=== PATIENT | female | born 1945 | race African-American/Black ===

== ENCOUNTER 2016-06-18 05:57 | Inpatient (IN) ==
[2016-06-18] MEDS: D10W 500 ML IV SCH ×2 (06:30→20:42)
--- NOTE | 2016-06-18 06:41 | EKG Report ---
Test Performed on : 06/18/2016 06:34:50 AM Test Reason : CHEST PAIN Blood Pressure : / mmHG Vent. Rate : 066 BPM Atrial Rate : 066 BPM P-R Int : 160 ms QRS Dur : 100 ms QT Int : 428 ms P-R-T Axes : 002 -35 021 degrees QTc Int : 448 ms Normal sinus rhythm. Left axis deviation Anterolateral infarct (cited on or before 07-AUG-2009) Abnormal ECG When compared with ECG of 22-NOV-2015 06:16, No significant change was found Unconfirmed Result
--- NOTE | 2016-06-18 06:47 | PROVIDER DOCUMENTATION ---
Addendum entered and electronically signed by Michele Hardy Scribe 06/18/16 10 :58: Progress - CT/MRI 1 CT Study: Head Impression: Abnormal CT Results: old infarcts, no acute abnormality Original Note: HPI-General Adult - General Source: patient, family - History of Present Illness -Gen Adult Nature of Presenting Problems: Daughter reports that she could not weak mom up before she went to work and called 911. Pt is on insulin for DMII, but not on any pills for it. Pt has not been eating much lately because of her toothache. FSBS=31 when EMS on the scene and EJ started on R side and IV D10 around 250 MLS given en route. LLEO=642n on ED arrival and pt woke up. Denies CP and no other concerns. H/o DMII/CHF and stents in heart, etc. Pt had previous stroke and her speech is slurred, plus she has tooth ache recently and makes her speech more gabbled. Location of Pain/Injury: reports: mouth Pain Radiation: reports: no radiation Quality of Pain: reports: sharp Severity: reports: moderate, severe Onset/Duration: reports: just prior to arrival Timing: reports: improving Context/Activities at Onset: reports: none Modifying Factors: improves with: other (See above) Associated Symptoms: reports: denies symptoms. denies: chest pain, cough, headaches, shortness of breath, sensory/motor loss, vomiting, weakness Similar Symptoms Previously?: No Recently seen or treated by another doctor?: Yes - Diabetes Related Context Context: reports: low blood sugar <Subha Vega - Last Filed: 06/18/16 07:10> <Michele Hardy - Last Filed: 06/18/16 10:40> - General Chief Complaint: Low Blood Sugar Stated Complaint: FSBS 31 ME[employer], AMS Time Seen by Provider: 06/18/16 06:11 Allergies/Adverse Reactions: Patient Allergies Allergy/AdvReac Type Severity Reaction Status Date / Time No Known Allergies Allergy Verified 06/18/16 06:08 Home Medications: Metoprolol [Lopressor] 50 mg PO BID 12/27/14 Ferrous Sulfate 5 grain PO BID 11/21/15 ATORVAstatin [Lipitor] 20 mg PO DAILY 06/18/16 Hum Insulin NPH/Reg Insulin Hm [Novolin 70-30 100 Unit/ml Vial] 10 unit SQ HS Hum Insulin NPH/Reg Insulin Hm [Novolin 70-30 100 Unit/ml Vial] 20 unit SQ QAM 06/18/16 Sertraline [Zoloft] 50 mg PO DAILY 06/18/16 Review of Systems - Adult - REVIEW OF SYSTEMS - ADULT Constitutional: reports: see HPI, fatique. denies: chills, fever, weight gain, weight loss Eyes: reports: no symptoms reported Ears, Nose, Mouth & Throat: reports: no symptoms reported Cardiovascular: reports: no symptoms reported. denies: chest pain Respiratory: reports: no symptoms reported. denies: chronic cough, cough Gastrointestinal: reports: no symptoms reported. denies: see HPI, abdominal pain Musculoskeletal: reports: no symptoms reported Integumentary: reports: no symptoms reported Neurological: reports: see HPI Psychiatric: reports: no symptoms reported All Other Systems: Reviewed and Negative <Subha Vega X - Last Filed: 06/18/16 07:10> Past History - Adult - PAST MEDICAL HISTORY-ADULT Major Childhood Illnesses: reports: denies history Cardiovascular: reports: cardiac disease, HTN, NE Respiratory: reports: denies history Gastrointestinal: reports: denies history Obstetrical/Gynecological: reports: denies history Genitourinary: reports: denies history Musculoskeletal: reports: denies history Neurological: reports: denies history Psychiatric: reports: denies history Endocrine/Immune: reports: Diabetes Other Conditions: reports: other cancer - PRIOR SURGERIES/PROCEDURES Surgical/Procedure History: reports: cholecystectomy, cardiac stent, orthopedic (extremity) (total hip) - IMMUNIZATION STATUS Childhood Immunizations: See Nurse Assessment Flu Vaccine: See Nurse Assessment <Subha Vega X - Last Filed: 06/18/16 07:10> Physical Exam-General - PHYSICAL EXAM-ADULT Initial Vital Signs Reviewed: Yes - CONSTITUTIONAL General Appearance: appears well, alert, no apparent distress - EYES Eyes: PERRL/EOMI, pink conjunctivae - HEAD, EARS, NOSE, MOUTH & THROAT HENMT: normocephalic/atraumatic, moist mucous membranes - NECK Neck: non-tender, full range of motion, supple, normal inspection - RESPIRATORY Respiratory: chest non-tender, lungs clear, normal breath sounds, no pleuratic chest pain, no respiratory distress, no accessory muscle use - CARDIOVASCULAR Cardiovascular: normal peripheral pulses, regular rate, rhythm, no edema, no gallop, no JVD, no murmur - GASTROINTESTINAL (ABDOMEN) Abdominal Exam: normal bowel sounds, non tender, soft, no organomegaly, no pulsatile mass - MUSCULOSKELETAL Back Exam: normal inspection, no CVA tenderness Extremity: normal range of motion, swelling (B/l LE swelling, which is chronic and daughters report DVT negative by her PCP) - SKIN Integumentary: normal color, normal turgor, warm/dry - NEUROLOGIC Neurologic: grossly normal, no motor/sensory deficits - PSYCHIATRIC Psych/Mental Status: normal mood/affect, normal thought content, oriented x 3 <Subha Vega X - Last Filed: 06/18/16 07:10> Progress - EKG 1 EKG Interpretation (*Must complete 3 of following elements*): Abnormal Rate: 66 Rhythm: NSR Cornucopia: left QRS: normal AL Interval: normal ST Wave: non-specific ST changes <Subha Vega X - Last Filed: 06/18/16 07:10> - PLAN OF CARE/RESULTS Progress/Plan/Lab Results: plan of care-labs Vital Signs Temp Pulse Resp BP Pulse Ox 06/18/16 06:02 96.7 F L 62 16 178/72 95 No Known Allergies Allergy (Verified 06/18/16 06:08) Aspirin 81 mg PO DAILY #0 chewtab 12/24/14 Furosemide [Lasix] 40 mg PO DAILY #0 12/24/14 LISINOpril [Prinivil] 40 mg PO DAILY #0 12/24/14 Omeprazole [Prilosec] 20 mg PO DAILY@0700 #0 capsule 12/24/14 Amlodipine [Norvasc] 10 mg PO DAILY #30 tablet 12/25/14 Metoprolol [Lopressor] 50 mg PO BID 12/27/14 Ferrous Sulfate 5 grain PO BID 11/21/15 ATORVAstatin [Lipitor] 20 mg PO DAILY 06/18/16 Hum Insulin NPH/Reg Insulin Hm [Novolin 70-30 100 Unit/ml Vial] 10 unit SQ HS Hum Insulin NPH/Reg Insulin Hm [Novolin 70-30 100 Unit/ml Vial] 20 unit SQ QAM 06/18/16 Sertraline [Zoloft] 50 mg PO DAILY 06/18/16 Laboratory 06/18/16 06/18/1606/18/16 06:50 06:50 06:50 WBC 8.74 RBC 3.13 L Hgb 8.1 L Hct 25.6 L MCV 81.8 MCH 25.9 L MCHC 31.6 L RDW Std Deviation 14.5 Plt Count 348 MPV 9.8 Immature Gran % (Auto) 0.3 Neut % (Auto) 76.7 H Lymph % (Auto) 11.9 L [place] % (Auto) 9.2 Eos % (Auto) 1.7 Baso % (Auto) 0.2 Immature Gran # (Auto) 0.03 Neut # 6.70 H Lymph # 1.04 L [place] # 0.80 H Eos # 0.15 Baso # 0.02 PT 13.8 INR 1.03 APTT (Factor Assay) 33.8 Sodium Potassium Chloride Carbon Dioxide Anion Gap BUN Creatinine Estimated GFR/1.73 m2 BUN/Creatinine Ratio Glucose Calculated Osmolality Calcium Magnesium Total Bilirubin AST ALT Alkaline Phosphatase Creatine Kinase Troponin T [id number] Pept 3830 H Total Protein Albumin Globulin Albumin/Globulin Ratio 06/18/16 06/18/16 06:50 06:50 WBC RBC Hgb Hct MCV MCH MCHC RDW Std Deviation Plt Count MPV Immature Gran % (Auto) Neut % (Auto) Lymph % (Auto) [place] % (Auto) Eos % (Auto) Baso % (Auto) Immature Gran # (Auto) Neut # Lymph # [place] # Eos # Baso # PT INR APTT (Factor Assay) Sodium 134 L Potassium 2.8 L Chloride 97 L Carbon Dioxide 31 Anion Gap 6 BUN 17 Creatinine 1.1 H Estimated GFR/1.73 m2 49 BUN/Creatinine Ratio 15 Glucose 109 H Calculated Osmolality 270 Calcium 8.4 L Magnesium 1.6 Total Bilirubin 0.20 AST 16 ALT 8 L Alkaline Phosphatase 95 Creatine Kinase 104 Troponin T < 0.010 [id number] Pept Total Protein 6.0 L Albumin 2.5 L Globulin 4.0 Albumin/Globulin Ratio 1.0 Orders Category Date Time Status Cardiac Monitoring DIRECTED Care 06/18/16 06:27 Active FSBS [Finger Stick Blood Sugar (ED)] DIRECTED Care 06/18/16 09:53 Active Saline Loc NOW Care 06/18/16 06:27 Active CHEST-PORTABLE [RAD] Stat Exams 06/18/16 06:27 Draft HEAD W/O CONTRAST [CT] Stat Exams 06/18/16 10:00 Taken CBC WITH ELECTRONIC DIFF [HEME] Stat Lab 06/18/16 06:50 Completed CK PROFILE [SP CHEM] Stat Lab 06/18/16 06:50 Completed COMPREHENSIVE METABOLIC PANEL [CHEM] Stat Lab 06/18/16 06:50 Completed MAGNESIUM [CHEM] Stat Lab 06/18/16 06:50 Completed PRO B-NATRIURETIC PEPTIDE Stat Lab 06/18/16 06:50 Com[address]IME WITH INR PL [COAG] Stat Lab 06/18/16 06:[address] [COAG] Stat Lab 06/18/16 06:50 Completed TROPONIN T Stat Lab 06/18/16 06:50 Completed UA NIMS W/REFLEX CULT PL [URINALYSIS] Stat Lab 06/18/16 06:27 Uncollected Dextrose 10% Water Inj. [D10w] 500 ml Med 06/18/16 06:30 Active IV 100 mls/hr Potassium Chloride E.r. [Klor-Con] Med 06/18/16 07:39 Discontinued 60 meq PO NOW ONE EKG [EKG] Stat Ther 06/18/16 06:27 Draft - REASSESSMENT Reassessment #1 Time Reassessed: 10:00 Status: other Reassessment Comment: altered, ct scan of head ordered, will admit - CONSULTS/PCP/HOSPITALIST Notification #1 *Consult/PCP/Hospitalist*: (surgeon/president for hospitalist) Time Discussed: 10:34 Reason/Comments: will right orders Consult Disposition: Admit <Michele Hardy - Last Filed: 06/18/16 10:40> Departure <Subha Vega - Last Filed: 06/18/16 07:10> - Departure Time of Disposition Order: 10:01 Certified Medical Emergency: Emergent <Michele Hardy - Last Filed: 06/18/16 10:40> - Departure DIAGNOSIS: Hypoglycemia, Altered mental status Congestive heart failure Qualifiers: Congestive heart failure type: unspecified congestive heart failure type Congestive heart failure chronicity: acute on chronic Qualified Code(s): I50.9 - Heart failure, unspecified Disposition: ADMITTED INPATIENT 09 Condition: Stable Referrals: Adi Childs MD [Primary Care Provider] - Forms: Return to School/Parent Work Physician Attestation
[2016-06-18 06:54] LABS: MANUAL DIFF NEEDED? NO
[2016-06-18 07:20] LABS: ALBUMIN 2.5 g/dL (3.5-5.0); CALCIUM 8.4 mg/dL (8.8-10.2); MAGNESIUM 1.6 mg/dL (1.5-2.7); POTASSIUM 2.8 mmol/L (3.5-5.1); TOTAL BILIRUBIN 0.2 mg/dL (0.20-1.00)
--- NOTE | 2016-06-18 07:31 | Diag Imaging Result Document ---
PROCEDURE NAME: CHEST-PORTABLE - 06/18/2016 ERECT [place]ST [place] 0636 HOURS: FINDINGS: There is cardiomegaly. The inspiration is somewhat suboptimal. Overall there has been no appreciable change since 11/24/2015. IMPRESSION: Cardiomegaly.
[2016-06-18 07:35] LABS: INR 1.03 (0.86-1.15); PROTIME 13.8 Seconds (12.1-15.5)
[2016-06-18 07:36] LABS: PTT PL 33.8 Seconds (22.6-43.9)
[2016-06-18 07:37] LABS: BASO% 0.2 % (0.0-0.8); EOS# 0.15 X1000 (0.0-0.7); EOS% 1.7 % (0.0-10.0); HEMATOCRIT 25.6 % (37.0-47.0); HEMOGLOBIN 8.1 g/dL (12.0-16.0); IMM GRAN# 0.03 X1000 (0.0-0.04); IMM GRAN% 0.3 % (0.0-0.5); LYMPH# 1.04 X1000 (1.2-3.4); LYMPH% 11.9 % (20.5-51.1); MCH 25.9 PG (27-31); MCHC 31.6 g/dL (33-37); MCV 81.8 FL (81-99); MONO% 9.2 % (1.7-9.3); MPV 9.8 FL (7.4-10.4); NEUT% 76.7 % (42.2-75.2); PLT 348 X1000 (130-400); RBC 3.13 XMIL (4.2-5.4)
[2016-06-18] MEDS ORDERED: KLOR-CON PO ONE (07:39)
--- NOTE | 2016-06-18 11:26 | Diag Imaging Result Document ---
PROCEDURE NAME: HEAD W/O CONTRAST - 06/18/2016 CT OF THE HEAD WITHOUT CONTRAST: FINDINGS: There are calcifications present in the internal carotid arteries bilaterally. There is generalized cerebral atrophy. There is encephalomalacia in the left occipital lobe, the right basal ganglia, and adjacent white matter, and there are small lacunae present in both thalami. There is no evidence of bleed or mass effect. Compared to 12/10/2014, the encephalomalacic findings were present previously. The visualized paranasal sinuses are clear. There are no acute bony abnormalities. IMPRESSION: Extensive chronic ischemic change, as described. Given these findings, further evaluation with MRI may be desirable, if clinically indicated.
[2016-06-18 14:35] LABS: HEMOGLOBIN A1C 4.5 % (4.8-6.0)
--- NOTE | 2016-06-18 14:42 | HISTORY AND PHYSICAL ---
PRIMARY CARE PHYSICIAN: Dr. Childs. CHIEF COMPLAINT: She was found unresponsive this a.m., 911 was called. When they arrived she had a blood sugar of 31 and was brought to the emergency room at [facility]. HISTORY OF PRESENTING ILLNESS: This is a 71-year-old female who is morbidly obese with diabetes type 2 who presents to the ER after being found by her daughter this morning unresponsive. When EMS arrived, they checked her blood sugar and it was 31. She was brought to the emergency room for further evaluation and treatment. By the time she arrived to the emergency room her blood sugar had come up to 109 after receiving an amp of D50 en route. She was noted to have a potassium of 2.8. CT of the head showed extensive chronic ischemic change and given these findings, the evaluation with an MRI would be desirable if clinically indicated. It did show small lacuna present in both thalami. She was admitted for further evaluation and treatment. PAST MEDICAL HISTORY: Coronary artery disease, hypertension, morbid obesity, type 2 diabetes, neurogenic bladder, chronic kidney disease stage 3, diastolic CHF, breast cancer, gout and CVA. PAST SURGICAL HISTORY: Heart stent placement, right breast lumpectomy, cholecystectomy and bilateral cataracts removed. FAMILY HISTORY: Diabetes in her dad and he passed from his diabetes complications. SOCIAL HISTORY: She currently lives with her daughter. Denies any tobacco, alcohol, or illicit drug use. ALLERGIES: SHE HAS NO KNOWN DRUG ALLERGIES. HOME MEDICATIONS: We will hold her Lasix 40 mg p.o. daily. We will continue her Lipitor 20 mg p.o. daily, Norvasc 10 mg p.o. daily, aspirin 81 mg p.o. daily, Caltrate 600 mg p.o. daily, ferrous sulfate 1 g b.i.d., Novolin 70/30 10 units subcu at bedtime and 20 units subcu q.a.m., Prinivil 40 mg p.o. daily, Lopressor 50 mg p.o. b.i.d., Prilosec 20 mg p.o. daily at 7 a.m., and Zoloft 50 mg p.o. daily. LABORATORY DATA: Showed a white blood cell count of 8.74, hemoglobin 8.1, hematocrit 25.6, platelets 348,000. PT and INR of 13.8 and 1.03. Sodium 134, potassium 2.8, chloride 97, CO2 31, BUN of 17, creatinine 1.1, glucose 109, magnesium 1.6, creatine kinase 104. Troponin less than 0.010. Pro-BNP of 3830. Chest x-ray showed cardiomegaly. Head CT showed extensive chronic ischemic changes with generalized cerebral atrophy, encephalomalacia in the left occipital lobe and the right basal ganglia and small lacune present in both thalami. An MRI is suggested. REVIEW OF SYSTEMS: She denies any fever, chills, blurred vision, dizziness, chest pain, coughing, shortness of breath, constipation, diarrhea, burning or hurting with urination. PHYSICAL EXAMINATION: VITAL SIGNS: Temperature 96.7 degrees, pulse 62, respirations 16, blood pressure 178/72, saturating 95% on room air. GENERAL: This is a 71-year-old morbidly obese female lying in the bed. Answers questions appropriately and daughter also at bedside to give history along with the ER record. HEENT: Normocephalic and atraumatic. Pupils are equal, round, reactive to light. Extraocular movements are intact. The oropharynx and nares are clear. NECK: Supple. LUNGS: Clear to auscultation bilaterally with equal lung expansion and chest wall movement. HEART: With regular rate and rhythm. No murmurs, rubs, or gallops. ABDOMEN: Soft, nontender, nondistended. Bowel sounds are present x4 quadrants. EXTREMITIES: There is no clubbing, cyanosis, or edema. NEUROLOGICAL: The cranial nerves 2-12 appear grossly intact. ASSESSMENT: 1. Hypoglycemia in a known diabetic type 2. 2. Hypokalemia. 3. Acute diastolic congestive heart failure on chronic. 4. Hypertension. PLAN: She has been admitted to the medical unit at [facility], placed on telemetry. Diabetic diet. Pattern blood sugars with sliding scale insulin. Will continue her home medication. She received 1 bag of D10 at 100 mL an hour. That has been discontinued as her blood sugars are looking better. We will check an MRI of the brain without contrast. Will check a urinalysis. Recheck a CBC and a BMP. She received 60 mEq of potassium in the ER p.o. and will continue her home medications as previously identified. Dictated by AFSHAN Lowery for Flaco Mehta MD
[2016-06-18] MEDS ORDERED: CALMOSEPTINE OINTMENT TOP PRN (15:46)
--- NOTE | 2016-06-18 16:27 | Diag Imaging Result Document ---
PROCEDURE NAME: MRI BRAIN W/O CONTRAST - 06/18/2016 MRI OF THE BRAIN WITHOUT CONTRAST: FINDINGS: There is no evidence of restricted diffusion. There are no previous MRI studies available for comparison. However, there is a CT of the head from 06/18/2016. There is some periventricular white matter hyperintensity on T2 and FLAIR. This is particularly notable near the right frontal horn. There is encephalomalacia in the area of the putamen and adjacent external capsule on the right. Small lacunae are present in the mid brain on the right and in both thalami. No evidence of bleed or abnormal extra-axial fluid collection is present. IMPRESSION: 1. Chronic ischemic changes. These were probably also present at the time of the previous CT of the brain dated 12/10/2014. 2. No evidence of acute ischemia.
[2016-06-18] MEDS ORDERED: HUMULIN 70/30 (PARKWAY) SUBQ SCH (21:00)
[2016-06-18] MEDS: LOPRESSOR PO SCH (21:51)
[2016-06-18] MEDS: FERROUS SULFATE PO SCH (21:51)
[2016-06-18 23:31] LABS: URINE SOURCE CATH
[2016-06-18 23:43] LABS: BILIRUBIN URINE NEGATIVE (NEGATIVE); BLOOD URINE TRACE (NEGATIVE); CLARITY VERY CLOUDY (CLEAR); COLOR YELLOW; GLUCOSE URINE NEGATIVE (NEGATIVE); LEUKOCYTES URINE 2+ (NEGATIVE); NITRITE URINE NEGATIVE (NEGATIVE); PROTEIN URINE 1+(30 mg/dL) mg/dL (NEGATIVE); SP GRAVITY URINE 1.015; URINE MICROSCOPIC NEEDED? YES; UROBILINOGEN URINE NORMAL
[2016-06-18 23:59] LABS: URINE WBC 20-40 /HPF (<10)
[2016-06-19] LABS: URINE EPITHELIAL CELLS <10 /HPF (<10)
[2016-06-19] MEDS: D50W SYRINGE IV PRN ×2 (04:20→04:50)
[2016-06-19] MEDS: PRILOSEC PO SCH (06:25)
[2016-06-19 06:32] LABS: MANUAL DIFF NEEDED? NO
[2016-06-19 06:42] LABS: BASO% 0.2 % (0.0-0.8); EOS# 0.11 X1000 (0.0-0.7); EOS% 1.3 % (0.0-10.0); HEMATOCRIT 27.5 % (37.0-47.0); HEMOGLOBIN 8.4 g/dL (12.0-16.0); IMM GRAN# 0.03 X1000 (0.0-0.04); IMM GRAN% 0.4 % (0.0-0.5); LYMPH# 0.92 X1000 (1.2-3.4); LYMPH% 10.8 % (20.5-51.1); MCH 25.5 PG (27-31); MCHC 30.5 g/dL (33-37); MCV 83.6 FL (81-99); MONO# 0.85 X1000 (0.11-0.59); MPV 10.9 FL (7.4-10.4); NEUT% 77.3 % (42.2-75.2); PLT 298 X1000 (130-400); RBC 3.29 XMIL (4.2-5.4)
[2016-06-19 07:05] LABS: CALCIUM 8.8 mg/dL (8.8-10.2); POTASSIUM 3.3 mmol/L (3.5-5.1)
[2016-06-19] MEDS ORDERED: HUMULIN 70/30 (PARKWAY) SUBQ SCH (09:00)
--- NOTE | 2016-06-19 09:47 | PROGRESS NOTE ---
DATE: 06/19/2016 SUBJECTIVE: The patient's daughter notes that she had an episode of hypoglycemia earlier this morning. Blood sugar dropped into the low 40s. The patient was sitting there awake and alert and then started having acute sweating, mental status change, and the daughter asked that her blood sugar be checked. The daughter notes that she did eat lunch well and supper well yesterday. Denies any fever or chills. Denies dysuria or urinary frequency. Denies any GI or issues. OBJECTIVE: Temperature is 97, pulse 67, respiratory rate 18, blood pressure 160/54, saturation is 84% on room air. General: The patient is a well-developed, well-nourished, obese female who is in no respiratory distress. She is awake and alert. Neck: Supple. She is sitting in the bed eating breakfast without any difficulty. She appears more alert and oriented today than yesterday. Cardiovascular: Regular rate and rhythm. Chest: Clear, nonlabored. Abdomen: Soft. Extremities: Moves all extremities. Neurologic: No changes. DIAGNOSTIC DATA: Potassium is 3.3. Hemoglobin and hematocrit are 8 and 27. Glucose is currently 120 with a low of 20 to 55 this morning. ASSESSMENT: 1. Diabetes with hypoglycemia, likely secondary to insulin. 2. Anemia, stable. 3. Hypokalemia, stable. PLAN: We will hold the patient's insulin today and tonight. We will continue to encourage p.o. We will place her on Bactrim as she certainly could have a urinary infection. Culture is pending. Further orders as needed.
[2016-06-19] MEDS: ASPIRIN PO SCH (10:24)
[2016-06-19] MEDS: CALTRATE 600 PO SCH (10:25)
[2016-06-19] MEDS: NORVASC PO SCH (10:25)
[2016-06-19] MEDS: ZOLOFT PO SCH (10:25)
[2016-06-19] MEDS: LOPRESSOR PO SCH ×3 (10:25→20:53)
[2016-06-19] MEDS: FERROUS SULFATE PO SCH ×3 (10:25→20:53)
[2016-06-19] MEDS: PRINIVIL PO SCH (10:25)
[2016-06-19] MEDS: SEPTRA DS PO SCH ×3 (10:26→20:53)
[2016-06-19] MEDS: LIPITOR PO SCH ×2 (19:28→20:53)
[2016-06-19 20:43] LABS: URINE SOURCE CATH
[2016-06-19 21:04] LABS: BILIRUBIN URINE NEGATIVE (NEGATIVE); BLOOD URINE 1+ (NEGATIVE); COLOR AMBER; GLUCOSE URINE NEGATIVE (NEGATIVE); LEUKOCYTES URINE 2+ (NEGATIVE); NITRITE URINE NEGATIVE (NEGATIVE); PROTEIN URINE 2+(100 mg/dL) mg/dL (NEGATIVE); SP GRAVITY URINE 1.015; UROBILINOGEN URINE NORMAL
[2016-06-19 21:06] LABS: URINE CULTURE PL NEEDED? YES; URINE EPITHELIAL CELLS >10 /HPF (<10)
[2016-06-19 21:07] LABS: CLARITY VERY CLOUDY (CLEAR)
[2016-06-20] MEDS: TYLENOL PO PRN (00:06)
[2016-06-20] MEDS: PRILOSEC PO SCH (06:11)
[2016-06-20] MEDS: PRINIVIL PO SCH (08:30)
[2016-06-20] MEDS: NORVASC PO SCH (08:31)
[2016-06-20] MEDS: FERROUS SULFATE PO SCH ×2 (08:31→20:30)
[2016-06-20] MEDS: ASPIRIN PO SCH (08:31)
[2016-06-20] MEDS: LOPRESSOR PO SCH ×2 (08:31→21:18)
[2016-06-20] MEDS: CALTRATE 600 PO SCH (08:31)
[2016-06-20] MEDS: SEPTRA DS PO SCH ×2 (08:31→20:31)
[2016-06-20] MEDS: ZOLOFT PO SCH (08:33)
[2016-06-20] MEDS: APRESOLINE PO SCH ×2 (12:22→20:30)
--- NOTE | 2016-06-20 14:01 | PROGRESS NOTE ---
DATE: 06/20/2016 SUBJECTIVE: Patient's blood sugar was good last night. She is still having difficulty eating. She is still pocketing her food for 20-30 minutes at a time until her family or the nurse reminds her to swallow. PHYSICAL: Vital Signs: Temperature 98 degrees, pulse 69, respiratory 20, BP 140/58 to 173/62. General: Patient is well developed obese female. She is in no respiratory distress. She is awake, alert, responds appropriately to commands. Neck: Supple. CV: Regular rate. Chest: Clear. Nonlabored. Abdomen: Soft, nondistended. Extremities: Moves all extremities. Neurologic: No changes. Skin: Warm, dry. She is still having difficulty swallowing which the family notes this is new. ASSESSMENT: 1. Diabetes. Blood sugars have been better. We have held her home insulin currently. Certainly will need to continue to hold that given that she is not eating well. 2. Hypertension. Will add hydralazine. She is already on Prinivil 40, amlodipine 10, metoprolol 50 twice a day. Blood sugars remain elevated. 3. High cholesterol. Continue medication. 4. Likely acute cerebrovascular accident. Patient most likely had a stroke either during her extreme hypoglycemic episode or that was the cause of the episode. Will continue to follow. Continue to encourage her to eat. She will certainly need a swallowing study for assistance.
[2016-06-20] MEDS: LIPITOR PO SCH (20:30)
[2016-06-20] MEDS: LOVENOX SUBQ SCH (20:30)
[2016-06-21] MEDS: PRILOSEC PO SCH (06:14)
[2016-06-21 06:24] LABS: AGAP 7; ALBUMIN 2.5 g/dL (3.5-5.0); ALKALINE PHOSPHATASE 79 U/L (32-104); BUN 22 mg/dL (8-22); CALCIUM 8.6 mg/dL (8.8-10.2); CHLORIDE 102 mmol/L (98-107); COSMO 280; GOT 13 U/L (10-30); GPT 8 U/L (10-36); HEMATOCRIT 24.7 % (37.0-47.0); HEMOGLOBIN 7.5 g/dL (12.0-16.0); MAGNESIUM 1.8 mg/dL (1.5-2.7); MCH 25.7 PG (27-31); MCHC 30.4 g/dL (33-37); MCV 84.6 FL (81-99); MPV 9.9 FL (7.4-10.4); POTASSIUM 2.8 mmol/L (3.5-5.1); RBC 2.92 XMIL (4.2-5.4); SODIUM 138 mmol/L (136-145); TCO2 30 mmol/L (25-35); TOTAL BILIRUBIN < 0.15 mg/dL (0.20-1.00); TOTAL PROTEIN 5.8 g/dL (6.3-8.3)
[2016-06-21] MEDS: APRESOLINE PO SCH ×3 (07:54→20:11)
[2016-06-21] MEDS: PRINIVIL PO SCH ×2 (07:54→09:47)
[2016-06-21] MEDS: SEPTRA DS PO SCH ×3 (07:55→20:12)
[2016-06-21] MEDS: ASPIRIN PO SCH ×2 (07:55→09:46)
[2016-06-21] MEDS: NORVASC PO SCH ×2 (07:55→09:46)
[2016-06-21] MEDS: LOPRESSOR PO SCH ×3 (07:55→20:12)
[2016-06-21] MEDS: FERROUS SULFATE PO SCH ×3 (07:55→20:11)
[2016-06-21] MEDS: CALTRATE 600 PO SCH ×2 (07:55→09:46)
[2016-06-21] MEDS: ZOLOFT PO SCH (09:47)
--- NOTE | 2016-06-21 11:09 | PROGRESS NOTE ---
DATE: 06/19/2016 SUBJECTIVE: Patient without new complaints. Her blood sugars have been much better. 130s to 180s over at night. Still having trouble swallowing at times. She holds food in her mouth and liquids in her mouth until she is reminded to swallow. PHYSICAL EXAMINATION: Vital signs: Temperature 99 degrees, pulse 57, respiratory 20, BP 147/61 to 174/59. General: The patient is a well-developed, obese female, in no respiratory distress. She is awake, alert. Neck: Supple. CV: Regular rate. Chest: Relatively clear. Abdomen: Soft, nondistended. Extremities: Moves all extremities. Neurologic: No changes. LABS: Pending. ASSESSMENT: 1. Hypertension. Blood pressure remains elevated. She continues on lisinopril 40, Toprol 50 b.i.d., Norvasc 10. We will add hydralazine 25 b.i.d. 2. Depression. 3. High cholesterol. 4. Hypoglycemia. Will continue to hold her blood sugar medications of 70/30 10 units a.m., 20 units p.m. Her blood sugars have been better, although though have not been markedly elevated. They have been in the 104-180 range off of medications. She is still not eating well. Therefore, we will continue to hold. 5. Dysphagia. Patient will remain in the hospital with observation and assistance. Will wait until a swallowing study can be obtained.
[2016-06-21] MEDS: LOVENOX SUBQ SCH (20:11)
[2016-06-21] MEDS: LIPITOR PO SCH (20:12)
[2016-06-22] MEDS: PRILOSEC PO SCH (06:18)
[2016-06-22] MEDS: PRINIVIL PO SCH (08:05)
[2016-06-22] MEDS: NORVASC PO SCH (08:05)
[2016-06-22] MEDS: LOPRESSOR PO SCH (08:06)
[2016-06-22] MEDS: CALTRATE 600 PO SCH (08:06)
[2016-06-22] MEDS: SEPTRA DS PO SCH (08:06)
[2016-06-22] MEDS: FERROUS SULFATE PO SCH (08:06)
[2016-06-22] MEDS: ASPIRIN PO SCH (08:06)
[2016-06-22] MEDS: ZOLOFT PO SCH (08:07)
[2016-06-22] MEDS ORDERED: APRESOLINE PO SCH (09:00)
--- NOTE | 2016-06-22 10:41 | PROGRESS NOTE ---
DATE: 06/22/2016 SUBJECTIVE: The patient without any real change. Still having difficulty swallowing. PHYSICAL EXAMINATION: vs: Temperature 98, pulse 54, respiratory rate 18, blood pressure 148/58. General: Patient is well developed, obese female, who is currently in no real respiratory distress. She is awake and alert. The daughter notes that she had some difficulty breathing after she took her medications this morning. HEENT: Normocephalic. Neck: Supple. Cardiovascular: Regular rate. Chest: Clear. Abdomen: Soft. Neurological Examination: No changes. ASSESSMENT: 1. Dysphagia. Swallow study pending. 2. Hypokalemia. Will replace. 3. Moderate protein calorie malnutrition. 4. Hypoglycemia, resolved. The patient still is not on her home insulin medications. 5. Depression. 6. High cholesterol. 7. Hypertension, improved after increasing her medications. PLAN: Patient needs a swallowing study. We will keep her NPO. Currently unsure how well she has swallowing. She certainly may need crushed medications and thickened liquids. We will follow after swallowing evaluation.
--- NOTE | 2016-06-22 10:45 | Diag Imaging Result Document ---
PROCEDURE NAME: ABDOMEN FLAT/UPRIGHT - 06/22/2016 X-RAY ABDOMEN 2 VIEWS: COMPARISON: None. FINDINGS: There is marked gaseous distention of the colon diffusely. There is fecal impaction of the ascending colon but not much stool in the descending colon. There is a left hip prosthesis. There are cholecystectomy clips. No obvious free air. IMPRESSION: Apparent obstruction at the distal colon. Fecal impaction of the ascending colon.
--- NOTE | 2016-06-22 10:46 | Diag Imaging Result Document ---
PROCEDURE NAME: CHEST-PORTABLE - 06/22/2016 PORTABLE CHEST X-RAY: COMPARISON: 06/20/2016. FINDINGS: Lung volumes are critically low and getting worse. No obvious infiltrates. IMPRESSION: See findings.
[2016-06-22] MEDS ORDERED: MILK AND MOLASSES ENEMA PR ONE ×2 (12:30→18:46)
[2016-06-22] MEDS ORDERED: MISC. PHARMACY COMMUNICATION SCH (12:45)
[2016-06-22] MEDS: NS 1,000 ML IV SCH (13:25)
[2016-06-22 14:17] LABS: AGAP 13; ALBUMIN 2.6 g/dL (3.5-5.0); ALKALINE PHOSPHATASE 80 U/L (32-104); BUN 28 mg/dL (8-22); CALCIUM 8.3 mg/dL (8.8-10.2); CHLORIDE 101 mmol/L (98-107); COSMO 284; GOT 14 U/L (10-30); GPT 6 U/L (10-36); POTASSIUM 2.9 mmol/L (3.5-5.1); SODIUM 138 mmol/L (136-145); TCO2 25 mmol/L (25-35); TOTAL BILIRUBIN < 0.15 mg/dL (0.20-1.00); TOTAL PROTEIN 5.6 g/dL (6.3-8.3)
[2016-06-22 14:25] LABS: HEMATOCRIT 43.3 % (37.0-47.0); HEMOGLOBIN 13.8 g/dL (12.0-16.0); MCH 25.8 PG (27-31); MCHC 31.9 g/dL (33-37); MCV 81.1 FL (81-99); MPV 10.7 FL (7.4-10.4); RBC 5.34 XMIL (4.2-5.4)
[2016-06-22] MEDS: LOVENOX SUBQ SCH (20:29)
[2016-06-22] MEDS: DUONEB (A & A) INH PRN (21:25)
[2016-06-22] MEDS: DULCOLAX PR SCH (22:56)
[2016-06-23] MEDS: DULCOLAX PR SCH ×3 (03:05→16:52)
[2016-06-23] MEDS: NS 1,000 ML IV SCH (06:01)
[2016-06-23 06:18] LABS: INR 1.1 (0.86-1.15); PROTIME 14.5 Seconds (12.1-15.5)
[2016-06-23 06:34] LABS: AGAP 9; ALBUMIN 2.4 g/dL (3.5-5.0); ALKALINE PHOSPHATASE 70 U/L (32-104); BUN 27 mg/dL (8-22); CALCIUM 8.2 mg/dL (8.8-10.2); CHLORIDE 106 mmol/L (98-107); COSMO 286; GOT 12 U/L (10-30); GPT 5 U/L (10-36); SODIUM 141 mmol/L (136-145); TCO2 26 mmol/L (25-35); TOTAL BILIRUBIN < 0.15 mg/dL (0.20-1.00); TOTAL PROTEIN 5.3 g/dL (6.3-8.3)
[2016-06-23 06:39] LABS: HEMATOCRIT 23.6 % (37.0-47.0); HEMOGLOBIN 7.2 g/dL (12.0-16.0); MCH 25.5 PG (27-31); MCHC 30.5 g/dL (33-37); MCV 83.7 FL (81-99); MPV 10.2 FL (7.4-10.4); RBC 2.82 XMIL (4.2-5.4)
[2016-06-23 06:44] LABS: POTASSIUM 2.1 mmol/L (3.5-5.1)
[2016-06-23] MEDS: DUONEB (A & A) INH PRN ×2 (07:26→11:03)
[2016-06-23] MEDS: POTASSIUM CHLORIDE 20 MEQ/SWI 100 ML IV SCH ×2 (10:18→13:39)
--- NOTE | 2016-06-23 10:43 | Diag Imaging Result Document ---
PROCEDURE NAME: ABDOMEN FLAT/UPRIGHT - 06/23/2016 TWO VIEW ABDOMEN: COMPARISON: 06/22/2016. FINDINGS: Diffuse colonic distention to the level of the rectum is again demonstrated. The degree of distension is slightly less than on the prior study. The sigmoid colon measures 11 cm. No significant retained fecal material is noted on today's study. Findings are consistent with diffuse colonic ileus versus mechanical obstruction, at the rectum or rectosigmoid junction. There is some nodularity involving the lateral wall of the cecum suggesting edema. No small bowel distention is appreciated. There is a left total hip arthroplasty and cholecystectomy clips. IMPRESSION: 1. Diffuse colonic distention to the level of the rectum or rectosigmoid junction, slightly improved from yesterday's study. Findings are compatible with mechanical obstruction versus adynamic ileus. 2. Nonspecific probable wall edema involving the lateral aspect of the cecum. Findings were discussed with Kay Cannon [facility]
[2016-06-23] MEDS ORDERED: NS 250 ML ONE (10:57)
--- NOTE | 2016-06-23 11:20 | PROGRESS NOTE ---
DATE: 06/23/2016 SUBJECTIVE: The patient states that she may be feeling a little better today. She has had no further vomiting. She has had less nausea, although she does remain n.p.o. Her abdomen continues to be distended. OBJECTIVE: Vital Signs: Blood pressure is 137/48. The heart rate is 71, respirations are 16, temperature is 98.7 degrees oral with oxygen saturations of 99% on 2 L nasal cannula. Cardiovascular: Regular rate and rhythm. S1 and S2 are appreciated. Pulmonary : Breath sounds have scattered wheezes throughout with no increased work of breathing noted. Gastrointestinal: Abdomen is distended, slightly firm, with hyperactive bowel sounds. It is nontender to palpation. Extremities: Pedal edema is noted bilateral. Calves are nontender. Pulses are palpable x4. LABS: WBC is 8.71 with a hemoglobin of 7.2, hematocrit 23.6, and platelets of 324,000. Her INR is 1.10. Chemistry: Sodium is 141, potassium 2.1, BUN 27, creatinine 2.7 with a glucose of 101. C. difficile was negative. MICROBIOLOGY: Urine culture, blood cultures revealed no growth. Stool for white blood cells is negative. Stool cultures negative with no growth. IMAGING STUDIES: Abdominal x-ray is pending. ASSESSMENT: 1. Ascending colon fecal impaction, questionable obstruction. 2. Hypokalemia. 3. Hypoglycemia. 4. Anemia. 5. Acute kidney injury. PLAN: The patient will remain n.p.o. We will repeat her abdominal x-ray today. She does continue to have liquid bowel movements. She is passing gas. She does have hyperactive bowel sounds. She had 2 milk and molasses enemas with no formed stool after the 2 milk and molasses enemas. We will ask Radiology to compare today's abdominal films to the one yesterday prior to enemas to see if the stool has moved. We will consult General Surgery. The patient has had no further vomiting. NG tube will be placed if this occurs. We will continue holding any insulins or antidiabetic medications. Her creatinine has risen, this is most likely secondary to volume depletion through diarrhea and being n.p.o. We will increase her IV hydration and trend her labs. We will hold any renal toxic medications. Her hemoglobin and hematocrit did drop from 8.4 and 27.5 to 7.5 and 24.7. Oddly enough, yesterday she did have a 13.8 and 43.3 hemoglobin and hematocrit today. She is being 7.2 and 23.6. We will guaiac her stools. Due to the decreased in kidney function and hemoglobin and hematocrit, we will go ahead and hold her Lovenox and apply SCDs. We will supplement electrolytes and trend labs. Dictated by AFSHAN Carcamo for Mc Pepper MD agree with above, may need transfer to [facility] if gi is needed [facility] MTDD
[2016-06-23] MEDS ORDERED: NS 500 ML IV ONE (13:38)
--- NOTE | 2016-06-23 13:43 | Diag Imaging Result Document ---
PROCEDURE NAME: CHEST-PORTABLE - 06/23/2016 PORTABLE CHEST: FINDINGS: Compared to 06/22/2016. A left-sided PICC line has been placed since the prior exam. The top overlies the upper to mid superior vena cava. No pneumothorax. The heart is mildly prominent. The vessels are not distended. No pneumonia. No pleural effusions identified. There are surgical clips in the right axilla. IMPRESSION: The left-sided PICC line its tip over the upper to mid superior vena cava. [facility]
--- NOTE | 2016-06-23 17:44 | Diag Imaging Result Document ---
PROCEDURE NAME: BARIUM ENEMA - 06/23/2016 SINGLE CONTRAST LIMITED BARIUM ENEMA: INDICATION: Evaluate for distal colonic obstruction. FINDINGS: Prior to the procedure a catheter was inserted into the rectum and a large amount of gas was spontaneously evacuated from the colon. A separate balloon- tip catheter was inserted into the rectum. The balloon was not inflated. Barium was instilled in a retrograde fashion by gravity. Barium was instilled to the splenic flexure. No constricting or obstructing lesions were identified. There are no fixed polypoid defects appreciated given the limitations of the examination given the large body habitus and immobility from prior stroke. IMPRESSION: No evidence for mechanical obstruction. Colonic distention is likely secondary to adynamic ileus. Consider tube decompression as needed. The proximal and transverse colon was not evaluated due to the patient's large body habitus and debilitated state. [facility]
[2016-06-23 22:48] LABS: HEMATOCRIT 26.1 % (37.0-47.0); HEMOGLOBIN 8.4 g/dL (12.0-16.0); MCH 26.9 PG (27-31); MCHC 32.2 g/dL (33-37); MCV 83.7 FL (81-99); MPV 9.6 FL (7.4-10.4); RBC 3.12 XMIL (4.2-5.4)
[2016-06-23 23:14] LABS: CALCIUM 8.2 mg/dL (8.8-10.2)
[2016-06-23 23:16] LABS: POTASSIUM 2.3 mmol/L (3.5-5.1)
[2016-06-23] MEDS ORDERED: POTASSIUM CHLORIDE 40 MEQ/SWI 100 ML IV ONE (23:30)
[2016-06-23] MEDS ORDERED: POTASSIUM CHLORIDE 80 MEQ in NS 500 ML IV ONE (23:35)
[2016-06-23] MEDS ORDERED: APRESOLINE IV PRN (23:56)
[2016-06-24] MEDS: POTASSIUM CHLORIDE 40 MEQ/SWI 100 ML IV SCH ×2 (00:03→08:47)
[2016-06-24] MEDS: NS 1,000 ML IV SCH ×2 (03:44→08:49)
[2016-06-24] MEDS ORDERED: POTASSIUM CHLORIDE 40 MEQ/SWI 100 ML IV ONE (04:00)
[2016-06-24] MEDS: D50W SYRINGE IV PRN (05:38)
[2016-06-24] MEDS: DUONEB (A & A) INH PRN ×4 (07:10→19:39)
--- NOTE | 2016-06-24 08:09 | Diag Imaging Result Document ---
PROCEDURE NAME: CHEST-PORTABLE - 06/20/2016 PORTABLE CHEST: Exam is submitted to ak for dictation on 06/24/2016. If there was a previous dictation, then that dictation was lost. Compared 06/18/2015. There is stable mild cardiomegaly. Inspiration is mildly shallow. There is skin fold artifact over the left base. Allowing for inspiration, the lungs otherwise appear grossly clear. There is no pleural effusion or pneumothorax identified. IMPRESSION: Stable mild cardiomegaly. Mildly shallow inspiration. No other evidence of acute disease.
[2016-06-24 09:21] LABS: HEMATOCRIT 24.9 % (37.0-47.0); MCH 26.8 PG (27-31); MCHC 32.1 g/dL (33-37); MCV 83.3 FL (81-99); MPV 9.5 FL (7.4-10.4); RBC 2.99 XMIL (4.2-5.4)
[2016-06-24 09:44] LABS: CALCIUM 8.4 mg/dL (8.8-10.2); POTASSIUM 2.8 mmol/L (3.5-5.1)
--- NOTE | 2016-06-24 14:48 | PROGRESS NOTE ---
DATE: 06/24/2016 SUBJECTIVE: The patient states that she is feeling "awesome" today. Her abdomen is soft. There is no more distention. She has no complaints of diarrhea, hiccups, any shortness of breath, chest pain, palpitations. OBJECTIVE: Vital Signs: Blood pressure is 157/54 with a heart rate of 73, respirations are 18, temperature is 98.2 degrees oral with oxygen saturations of 99% to 100%. Cardiovascular: Regular rate and rhythm. S1 and S2 appreciated. Pulmonary: Breath sounds are clear. No increased work of breathing noted. She does have some rhonchi that clear to cough. Gastrointestinal: Abdomen is soft, nondistended, with bowel sounds in all 4 quadrants. She denies any tenderness. Extremities: She does have some bilateral pedal edema, but it seems to be less today. Calves are nontender. Pulses are palpable x4. Neurologic: She is alert and oriented. LABS: WBC is 7.3 with a hemoglobin of 8, hematocrit 24.9, and platelets of 295. Sodium is 143, potassium 2.8, creatinine is 2.2, BUN is 26 with a glucose ranging from 99-142. RADIOLOGY: Her barium enema revealed no evidence for mechanical obstruction. Colonic distention is likely secondary to adynamic ileus. The proximal transverse colons were not evaluated due to body habitus and debilitated state per radiology read. The chest x-ray is for PICC placement with no pneumonia or atelectasis seen. ASSESSMENT: 1. Adynamic ileus. 2. Hypokalemia. 3. Hypoglycemia. 4. Anemia. 5. Acute kidney injury, resolving. 6. Dysphagia, which is chronic. 7. Protein calorie malnutrition, moderate. PLAN: Hiccups have subsided. She continues passing gas. Her abdomen is soft. We will allow her to have sips of liquids. We will go ahead and re-consult for speech evaluation and swallow evaluation, although the patient's symptoms are not new. This has been present since her stroke many years ago. The patient did state that she has trouble moving, chewing and manipulating food in her mouth. She has difficulty getting it back to the back of her throat to actually swallow. Will start Clinimix and let her attempt Ensure Clear. We will continue to monitor electrolytes and replenish as appropriate. We will continue with hydration. We will consult OT. Dictated by AFSHAN Carcamo for Mc Pepper MD pt examined, agree with above [facility] MTDD
[2016-06-24] MEDS: CLINIMIX E 4.25%-5% SOLUTION 1,000 ML IV SCH (15:11)
[2016-06-24] MEDS ORDERED: MISC. PHARMACY COMMUNICATION SCH (15:45)
[2016-06-25] MEDS: DUONEB (A & A) INH PRN ×5 (00:16→19:00)
[2016-06-25] MEDS: CLINIMIX E 4.25%-5% SOLUTION 1,000 ML IV SCH ×3 (01:27→20:04)
--- NOTE | 2016-06-25 06:35 | Diag Imaging Result Document ---
PROCEDURE NAME: FLAT/UPRIGHT ABD/1 VIEW CHEST - 06/25/2016 FLAT AND UPRIGHT AND CHEST, THREE VIEWS: COMPARISON: The chest is compared to 06/23/2016. FINDINGS: The lungs are poorly expanded. The heart remains enlarged. The PICC line has been pulled back with the tip possibly in the left subclavian vein rather than the superior vena cava. No free air beneath the diaphragm. There is stool in the distal colon. Air and distended loops of bowel in the midabdomen. The gallbladder has been removed. No organomegaly. IMPRESSION: 1. The left PICC line has been pulled back with the tip no longer near the superior vena cava/right atrial junction. 2. Cardiomegaly. 3. Air distended bowel loops may be representing an ileus.
[2016-06-25 06:51] LABS: HEMATOCRIT 27.7 % (37.0-47.0); HEMOGLOBIN 8.6 g/dL (12.0-16.0); MCH 26.3 PG (27-31); MCV 84.7 FL (81-99); MPV 10.2 FL (7.4-10.4); RBC 3.27 XMIL (4.2-5.4)
[2016-06-25 07:05] LABS: ALBUMIN 2.7 g/dL (3.5-5.0); CALCIUM 8.7 mg/dL (8.8-10.2); MAGNESIUM 1.9 mg/dL (1.5-2.7); POTASSIUM 3.5 mmol/L (3.5-5.1); TOTAL BILIRUBIN 0.2 mg/dL (0.20-1.00); TOTAL PROTEIN 5.7 g/dL (6.3-8.3)
[2016-06-25] MEDS ORDERED: DIFLUCAN PO SCH (09:00)
[2016-06-25] MEDS ORDERED: FLEET MINERAL OIL ENEMA PR ONE (13:55)
[2016-06-25] MEDS ORDERED: FLEET ENEMA PR ONE (13:55)
--- NOTE | 2016-06-25 14:14 | PROGRESS NOTE ---
DATE: 06/25/2016 SUBJECTIVE: The patient states that she continues to feel better. She has no more hiccups. No more diarrhea. Her abdomen is a little more distended today. She denies any abdominal pain. She has tolerated sips of liquids. OBJECTIVE: Vital Signs: Blood pressure is 166/64 with a heart rate of 80, respirations are 18, temperature is 99.4 degrees, with oxygen saturations of 100% on 2 L nasal cannula. Cardiovascular: Regular rate and rhythm. S1 and S2 appreciated. Pulmonary: Breath sounds are clear. No increased work of breathing noted. Gastrointestinal: Abdomen is soft. Slightly distended, with bowel sounds in all 4 quadrants. She denies any tenderness. Extremities: No clubbing, cyanosis, or edema. Calves are nontender. Pulses are palpable x4. Neurologic: She is alert and oriented. LABS: WBC is 8.6, with a hemoglobin of 8.6, hematocrit 27.7, and platelets of 330,000. Sodium is 144, potassium 3.5, BUN 25, creatinine 1.8, with a glucose ranging 114-130s. Abdominal x-ray reveals air distended loops of bowel in the mid abdomen and stool in the distal colon. PROBLEM LIST: 1. Adynamic ileus. 2. Hypokalemia. 3. Hypoglycemia. 4. Anemia. 5. Acute kidney injury in the setting of chronic kidney disease. 6. Dysphagia, which is chronic. 7. Protein calorie malnutrition, moderate. 8. Hiccups. PLAN: The patient underwent a swallow evaluation yesterday. She did fine with liquids as well as with don cracker. Patient's problems since her stroke have been with chewing food and manipulating hard food around and swallowing, particularly meats and pills. Will give sips of liquids now. Once she is able to start advancing her diet will only give pureed food. Abdominal x-ray reveals stool in the descending colon. This was in the ascending colon prior to now. She continues to pass gas. She has had no further nausea or vomiting. We will give a Fleet's enema as well as restart Dulcolax and Reglan. General surgery has been consulted. Will continue to trend electrolytes and replete as necessary. Blood sugars have been stable once she was placed on Clinimix, will continue. Her creatinine today it is 1.8. In review of her past records over the last few years she has stayed pretty well 2-3, so will continue to follow this. Will continue with occupational therapy. Dictated by AFSHAN Carcamo for Mc Pepper MD pt examined, agree with above, will add diflucan for yeast in uc; will also add miralax BID from above [facility] MTDD
[2016-06-25] MEDS ORDERED: CITRATE OF MAGNESIA PO ONE (14:18)
[2016-06-25] MEDS ORDERED: DIFLUCAN 100 MG/NS 50 ML IV SCH (16:00)
[2016-06-25] MEDS: MIRALAX PO SCH ×2 (16:33→20:04)
[2016-06-25] MEDS: TYLENOL PO PRN (18:27)
[2016-06-25] MEDS ORDERED: DULCOLAX PR SCH (21:00)
[2016-06-26] MEDS ORDERED: BENADRYL PO ONE ×2 (03:28→20:03)
--- NOTE | 2016-06-26 04:33 | CONSULTATION ---
DATE OF CONSULTATION: 06/25/2016 REASON FOR CONSULTATION: Colonic ileus. HISTORY OF PRESENT ILLNESS: A 71-year-old female with a history of chronic constipation and old strokes, who was found to be unresponsive and hypoglycemic and was brought to the emergency room urgently. She has been admitted for further observation. Her blood sugars have improved. Her responsiveness has improved; however, she has developed some abdominal distention and vomiting a few days ago. Since then, she has had some laxatives and enemas and appears to be having some bowel function. PAST MEDICAL HISTORY: Coronary artery disease, hypertension, morbid obesity, type 2 diabetes, chronic kidney disease, congestive heart failure, breast cancer, gout, stroke. PAST SURGICAL HISTORY: Right breast lumpectomy, cholecystectomy, cataract surgery, heart stent placement. FAMILY HISTORY: Diabetes. HOME MEDICATIONS: Lasix, Lipitor, Norvasc, aspirin, Caltrate, ferrous sulfate, Novolin, Prinivil, Lopressor, Prilosec, Zoloft. ALLERGIES: No known drug allergies. SOCIAL HISTORY: She lives with her daughter. No tobacco, alcohol or illicit drug use. REVIEW OF SYSTEMS: Ten systems reviewed and negative except as noted above. PHYSICAL EXAMINATION: Vital Signs: Temperature tonight 100.3, pulse 82, respirations 18, blood pressure 184/60. General: Elderly female who looks somewhat frail but in no acute distress. Neurologic: She is alert and appears to be oriented x3. Her cranial nerves appear to be grossly intact. She moves all extremities. HEENT: Normocephalic, atraumatic. Extraocular muscles intact. Pupils equal, round, reactive to light. Neck: Supple. No thyromegaly. CV: Regular rate and rhythm. Respiratory: Bilateral equal breath sounds. GI: Soft, nontender, mildly distended. She does have bowel sounds. She is mildly tympanic .no organomegaly or mass. No hernias appreciated. Extremities: No clubbing, cyanosis, or edema. Skin: Warm and dry. No rash. LABORATORY: White blood cell count 8.6, hemoglobin 8.6, sodium 144, potassium 3.5, chloride 101, CO2 25, BUN 25, creatinine 1.8, glucose 131, magnesium 1.9, phosphorus 2.3. IMAGING: She has had several abdominal x-rays showing distended colon. Most recently, the stool in the right side appears to be moving to the left side. She has a barium showing no left-sided obstruction. ASSESSMENT/PLAN: A 71-year-old female with apparent colonic ileus. I think in the setting of her recent electrolyte abnormalities and decreased mobility, this is more of a functional problem. I would encouraged replacement of her electrolytes, especially potassium, magnesium and phosphorus and slow advancement of diet, physical therapy, mobilization and continued observation.
[2016-06-26] MEDS: CLINIMIX E 4.25%-5% SOLUTION 1,000 ML IV SCH ×2 (05:09→15:43)
[2016-06-26 05:57] LABS: HEMOGLOBIN 8.1 g/dL (12.0-16.0); MCH 26.5 PG (27-31); MCHC 31.2 g/dL (33-37); RBC 3.06 XMIL (4.2-5.4)
[2016-06-26 06:10] LABS: CALCIUM 8.6 mg/dL (8.8-10.2); POTASSIUM 3.6 mmol/L (3.5-5.1)
[2016-06-26] MEDS: DUONEB (A & A) INH PRN ×4 (08:00→19:09)
--- NOTE | 2016-06-26 09:01 | Diag Imaging Result Document ---
PROCEDURE NAME: ABDOMEN FLAT/UPRIGHT - 06/26/2016 ABDOMEN, 2 VIEWS: COMPARISON: 06/25/2016. FINDINGS: There is stable significant gaseous distention of featureless bowel loops, suspected to be colon. There are also some abnormally distended small bowel loops. No evidence of free air. IMPRESSION: Little change from prior. Significant gaseous distention of colon and some small bowel loops.
[2016-06-26] MEDS: MIRALAX PO SCH ×2 (09:14→20:20)
[2016-06-26] MEDS: DIFLUCAN PO SCH (09:14)
[2016-06-26] MEDS: DULCOLAX PR SCH ×3 (10:04→20:30)
--- NOTE | 2016-06-26 11:22 | PROGRESS NOTE ---
DATE: 06/26/2016 SUBJECTIVE: The patient states that she is feeling somewhat better today. She has had no nausea. She has been tolerating liquids. She continues to pass gas. Her abdomen continues to be soft. OBJECTIVE: Vital Signs: Blood pressure is 185/64 with a heart rate of 82, respirations are 20. Temperature is 98.6 oral, with oxygen saturations 98% on 2 L nasal cannula. Cardiovascular: Regular rate and rhythm. S1, S2 appreciated. Pulmonary: Breath sounds are clear. No increased work of breathing noted. Gastrointestinal: Abdomen is soft, slightly distended, nontender with hypoactive bowel sounds. Extremities: Calves are nontender. Pulses are palpable x4. Neurologic: She is alert and oriented. LABS: WBC is 10.5, hemoglobin is 8.1, hematocrit 26 and platelets of 320,000. Sodium is 142, potassium 3.6, BUN 32, creatinine 1.4 with a glucose of 115. ASSESSMENT: 1. Adynamic ileus. 2. Hypokalemia. 3. Hypoglycemia. 4. Anemia. 5. Acute kidney injury in the setting of chronic kidney disease. 6. Dysphagia, which is chronic. 7. Protein calorie malnutrition, moderate. 8. Hiccups. PLAN: We will continue with full liquids as tolerated with Dulcolax suppositories as well as MiraLAX. The patient has been evaluated by Dr. Pérez of General Surgery and we appreciate his assistance. We will continue to trend her labs and replete electrolytes as necessary. We will continue with Clinimix as well as Ensure Clear, and occupational therapy. Dictated by AFSHAN Carcamo for Mc Pepper MD
--- NOTE | 2016-06-26 17:15 | PROGRESS NOTE ---
DATE: 06/26/2016 SUBJECTIVE: The patient denies abdominal pain, nausea, or vomiting. She is currently on a bedpan and having some bowel movements and flatus. She was tolerating a full liquid diet. OBJECTIVE: Vital Signs: She is afebrile. Vital signs are temperature 100.2, pulse 84, respirations 20, blood pressure 184/65. General: Alert and oriented x3. No acute distress. GI: Soft, somewhat distended and tympanic. Nontender. A few bowel sounds heard. LABORATORY: White blood cell count 10, hemoglobin 8.1, potassium 3.6. BUN 32, creatinine 1.4. ASSESSMENT AND PLAN: A 71-year-old female with colonic ileus and chronic constipation. She appears to be slowly improving. We will advance her to a pureed diet given her previous history of dysphagia and difficulty swallowing after stroke.
[2016-06-26 18:20] LABS: OCCULT BLOOD 1 NEGATIVE (NEGATIVE)
[2016-06-26] MEDS: LACTULOSE PO SCH (20:20)
[2016-06-27] MEDS: CLINIMIX E 4.25%-5% SOLUTION 1,000 ML IV SCH ×3 (01:51→21:27)
[2016-06-27] MEDS: DULCOLAX PR SCH ×4 (03:34→21:28)
[2016-06-27 06:10] LABS: HEMATOCRIT 25.4 % (37.0-47.0); HEMOGLOBIN 7.8 g/dL (12.0-16.0); MCH 26.3 PG (27-31); MCHC 30.7 g/dL (33-37); MCV 85.5 FL (81-99); RBC 2.97 XMIL (4.2-5.4)
[2016-06-27] MEDS: DUONEB (A & A) INH PRN ×2 (07:21→20:28)
[2016-06-27 07:28] LABS: CALCIUM 8.9 mg/dL (8.8-10.2); MAGNESIUM 1.9 mg/dL (1.5-2.7); POTASSIUM 3.3 mmol/L (3.5-5.1)
[2016-06-27] MEDS: DIFLUCAN PO SCH (10:09)
[2016-06-27] MEDS: LACTULOSE PO SCH ×2 (10:09→21:28)
[2016-06-27] MEDS: MIRALAX PO SCH ×2 (10:10→21:28)
--- NOTE | 2016-06-27 10:32 | PROGRESS NOTE ---
DATE: 06/27/2016 SUBJECTIVE: The patient states that she is feeling better today. She has had no nausea. She continues to tolerate liquids. She is passing gas. Her abdomen is still slightly distended, but is nontender. OBJECTIVE: Vital Signs: Blood pressure is 167/50 with a heart rate of 74, respirations are 18, temperature is 98.2 degrees with room air saturations of 100%. Cardiovascular: Regular rate and rhythm. S1 and S2 appreciated. Pulmonary: Breath sounds are clear. No increased work of breathing noted. Gastrointestinal: Abdomen is soft, slightly distended, nontender with hypoactive bowel sounds. Extremities: Calves are nontender. Pulses are palpable x4. LABS: WBC is 12.2 with a hemoglobin of 7.8, hematocrit 25.4, and platelets of 305. Sodium is 140, potassium 3.3, BUN is 34, creatinine 1.2 with a glucose ranging 105-170. ASSESSMENT: 1. Adynamic ileus. 2. Hypokalemia. 3. Hypoglycemia. 4. Anemia. 5. Acute kidney injury in the setting of chronic kidney disease, patient appears at baseline. 6. Dysphagia, which is chronic, status post cerebrovascular accident. 7. Moderate protein calorie malnutrition. 8. Hiccups. PLAN: We will continue with the current regimen. She does appear to be slowly improving. Her diet has been advanced to a pureed diet per Dr. Pérez. The patient did tolerate this well for supper last night. Dictated by AFSHAN Carcamo for Mc Pepper MD agree with above, pt examined, [facility] MTDD
[2016-06-27] MEDS ORDERED: HYDROXYZINE PO PRN (13:53)
[2016-06-27] MEDS: PEPCID PO SCH ×2 (15:33→21:27)
[2016-06-27] MEDS: ZYRTEC PO SCH (15:34)
[2016-06-28 06:14] LABS: MANUAL DIFF NEEDED? NO
[2016-06-28 06:21] LABS: BASO% 0.3 % (0.0-0.8); EOS# 0.66 X1000 (0.0-0.7); EOS% 5.5 % (0.0-10.0); HEMATOCRIT 28.2 % (37.0-47.0); HEMOGLOBIN 8.8 g/dL (12.0-16.0); IMM GRAN# 0.04 X1000 (0.0-0.04); IMM GRAN% 0.3 % (0.0-0.5); LYMPH# 1.25 X1000 (1.2-3.4); LYMPH% 10.4 % (20.5-51.1); MCH 26.7 PG (27-31); MCHC 31.2 g/dL (33-37); MCV 85.5 FL (81-99); MONO# 0.85 X1000 (0.11-0.59); MONO% 7.1 % (1.7-9.3); MPV 10.1 FL (7.4-10.4); NEUT% 76.4 % (42.2-75.2); PLT 321 X1000 (130-400)
[2016-06-28] MEDS: DULCOLAX PR SCH ×4 (06:32→21:58)
[2016-06-28 07:23] LABS: POTASSIUM 2.8 mmol/L (3.5-5.1)
[2016-06-28] MEDS: CLINIMIX E 4.25%-5% SOLUTION 1,000 ML IV SCH ×2 (07:41→18:18)
[2016-06-28] MEDS: LACTULOSE PO SCH ×2 (09:13→21:58)
[2016-06-28] MEDS: PEPCID PO SCH ×2 (09:13→21:58)
[2016-06-28] MEDS: DIFLUCAN PO SCH (09:13)
[2016-06-28] MEDS: MIRALAX PO SCH ×2 (09:13→21:58)
[2016-06-28] MEDS: ZYRTEC PO SCH (09:13)
--- NOTE | 2016-06-28 09:57 | Diag Imaging Result Document ---
PROCEDURE NAME: ABDOMEN FLAT/UPRIGHT - 06/28/2016 FLAT AND UPRIGHT ABDOMEN: FINDINGS: The stomach is not distended. There are small bowel and colonic loops which are distended with gas throughout the abdomen. The cecum is distended to at least 12.6 cm in transverse dimension. IMPRESSION: Stable colonic ileus.
[2016-06-28] MEDS: DUONEB (A & A) INH PRN ×2 (10:42→14:31)
[2016-06-28] MEDS: POTASSIUM CHLORIDE 20 MEQ/SWI 100 ML IV SCH ×2 (12:06→14:59)
[2016-06-28] MEDS ORDERED: CITRATE OF MAGNESIA PO ONE (13:10)
--- NOTE | 2016-06-28 14:17 | PROGRESS NOTE ---
DATE: 06/28/2016 SUBJECTIVE: The patient does not feel so well today. She states that she is just tired. She is not happy with a pureed diet. She continues to pass gas. She has no abdominal pain. OBJECTIVE: Vital Signs: Blood pressure is 175/75 with a heart rate of 82, respirations are 20, temperature is 99.4 degrees oral, with a oxygen saturations of 99 to 100% on 2 L nasal cannula. Cardiovascular: Regular rate and rhythm. S1 and S2 appreciated. Pulmonary: Breath sounds are clear. No increased work of breathing noted. Gastrointestinal: Abdomen is soft, nontender, nondistended. Bowel sounds in all 4 quadrants. Neurologic: She is alert and oriented. LABS: WBC is 11.9 with hemoglobin 8.8, hematocrit 28.2, and platelets of 321,000. Sodium is 138, potassium 2.8, BUN 36, creatinine 1.1 with glucose ranging 116-150. Abdominal x-ray reveals a stable colonic ileus with small bowel and colonic loops distended throughout the abdomen. The cecum is distended to at least 12.6 cm in transverse dimension. ASSESSMENT: 1. Adynamic ileus. Stool has moved from the ascending colon to the cecum. We will give milk and molasses enema today and will give another bottle of Mag citrate. Surgery continued to follow. 2. Hypokalemia. We will trend labs and replete as necessary. 3. Hypoglycemia. This seems to have resolved since she has been started on Clinimix. We will continue to trend blood sugars. 4. Anemia. This is stable. 5. Acute kidney injury in the setting of chronic kidney disease. This is at baseline. Her creatinine is actually down to 1.1 today. We will continue to follow. 6. Dysphagia. This is chronic. We are continuing to adjust diet so that the patient will eat. We will put her on a soft diet with all meats pureed. 7. Moderate protein calorie malnutrition. As stated above. We will continue with Ensure with meals and at bedtime. 8. Hiccups. This has resolved. PLAN: Will continue her current regimen. Continue to trend labs. Dictated by AFSHAN Carcamo for Mc Pepper MD
[2016-06-28] MEDS ORDERED: KLOR-CON PO ONE (15:38)
[2016-06-29] MEDS: CLINIMIX E 4.25%-5% SOLUTION 1,000 ML IV SCH ×2 (00:30→09:00)
[2016-06-29] MEDS: NON-FORMULARY BULK MED PR ONE ×2 (02:59→03:00)
[2016-06-29] MEDS: DULCOLAX PR SCH ×5 (03:00→23:12)
[2016-06-29 06:41] LABS: HEMATOCRIT 25.4 % (37.0-47.0); HEMOGLOBIN 7.7 g/dL (12.0-16.0); MCH 25.9 PG (27-31); MCHC 30.3 g/dL (33-37); MCV 85.5 FL (81-99); MPV 10.3 FL (7.4-10.4); RBC 2.97 XMIL (4.2-5.4)
[2016-06-29 07:37] LABS: AGAP 8; BUN 39 mg/dL (8-22); CALCIUM 8.8 mg/dL (8.8-10.2); CHLORIDE 109 mmol/L (98-107); COSMO 289; MAGNESIUM 1.9 mg/dL (1.5-2.7); POTASSIUM 3.4 mmol/L (3.5-5.1); SODIUM 138 mmol/L (136-145); TCO2 22 mmol/L (25-35)
[2016-06-29] MEDS: DUONEB (A & A) INH PRN ×3 (08:20→16:25)
[2016-06-29] MEDS: ZYRTEC PO SCH (08:41)
[2016-06-29] MEDS: PEPCID PO SCH ×2 (08:41→21:28)
[2016-06-29] MEDS: MIRALAX PO SCH ×2 (08:41→21:27)
[2016-06-29] MEDS: LACTULOSE PO SCH ×2 (08:41→21:27)
[2016-06-29] MEDS: DIFLUCAN PO SCH (08:52)
--- NOTE | 2016-06-29 10:42 | PROGRESS NOTE ---
DATE: 06/29/2016 SUBJECTIVE: Patient resting quietly in bed. No complaints voiced. OBJECTIVE: Vital Signs: Temperature 99.3 degrees, pulse 72, respirations 18, blood pressure 177/48, saturating 100% on 2 L via nasal cannula. HEENT: Normocephalic and atraumatic. Pupils are equal, round, reactive to light. Extraocular movements are intact. Oropharynx and nares are clear. Neck: Supple. Lungs: Clear to auscultation bilaterally with equal lung expansion and chest wall movement. Heart: Regular rate and rhythm. No murmurs, rubs, or gallops. Abdomen: Abdomen is soft, nontender, nondistended. Bowel sounds are present x4 quadrants. Extremities: There is no clubbing, cyanosis, or edema. Neurological: Cranial nerves 2-12 are grossly intact. LABORATORY DATA: Showed a white blood cell count of 10.42, hemoglobin 7.7, hematocrit 25.4, platelets 312,000. Sodium 138, potassium 3.4, chloride 109, CO2 22, BUN of 39, creatinine 1.2, glucose 163. ASSESSMENT/PLAN: 1. Adynamic ileus. She received milk of molasses enemas yesterday and another bottle of magnesium citrate. Surgery continues to follow and she has a flat and upright of the abdomen scheduled today. So, we will review those results after the exam is completed. 2. Hypokalemia improved. We will check another BMP in the a.m. 3. Anemia stable. Check CBC in a.m. 4. Acute kidney injury in the setting of chronic kidney disease. Continues to be at baseline. We will continue to follow. 5. Chronic dysphagia. Her diet was adjusted and she has a GI series with barium swallow scheduled for today, and those results are pending. We will review when they are available. 6. Moderate protein calorie malnutrition. I would continue with her current diet with Ensure with meals and at bedtime. Dictated by AFSHAN Lowery for Mc Pepper MD
--- NOTE | 2016-06-29 13:50 | Diag Imaging Result Document ---
PROCEDURE NAME: ABDOMEN FLAT/UPRIGHT - 06/29/2016 FLAT AND UPRIGHT ABDOMEN: FINDINGS: There is gas throughout the colon. There is no evidence of small bowel dilatation, organomegaly or mass. There may be some gas in the urinary bladder. The gas dilatation of the cecum which was present on 06/28/2016, has improved. IMPRESSION: Slightly improved colonic ileus.
[2016-06-29] MEDS ORDERED: LASIX IV ONE (17:03)
[2016-06-30] MEDS: DULCOLAX PR SCH ×3 (03:04→10:59)
[2016-06-30 07:21] LABS: HEMATOCRIT 25.1 % (37.0-47.0); HEMOGLOBIN 7.8 g/dL (12.0-16.0); MCH 26.8 PG (27-31); MCHC 31.1 g/dL (33-37); MCV 86.3 FL (81-99); MPV 10.3 FL (7.4-10.4); RBC 2.91 XMIL (4.2-5.4)
[2016-06-30 08:02] LABS: CALCIUM 8.9 mg/dL (8.8-10.2); POTASSIUM 2.8 mmol/L (3.5-5.1)
[2016-06-30] MEDS: DUONEB (A & A) INH PRN ×3 (08:12→15:25)
[2016-06-30] MEDS: PEPCID PO SCH (08:36)
[2016-06-30] MEDS: MIRALAX PO SCH (08:36)
[2016-06-30] MEDS: DIFLUCAN PO SCH (08:36)
[2016-06-30] MEDS: LACTULOSE PO SCH (08:36)
[2016-06-30] MEDS: ZYRTEC PO SCH (08:36)
[2016-06-30] MEDS ORDERED: MIRALAX PO SCH (09:00)
--- NOTE | 2016-06-30 10:13 | Diag Imaging Result Document ---
PROCEDURE NAME: GI SERIES WITH BA SWALLOW - 06/30/2016 BARIUM SWALLOW: The fluoroscopy time is 1 minute 16 seconds. The radiation dose is 1779.1 cGy cm2. FINDINGS: Exam was performed using thin liquid barium. There is no evidence of esophageal mass or stricture. There are no obvious esophageal inflammatory changes identified. There is delayed clearing of barium from the esophagus after the patient stopped drinking with some to-and-fro peristalsis. This may relate to diminished secondary peristalsis. There is a questionable small hiatal hernia. There was no aspiration observed during the exam. IMPRESSION: No evidence of esophageal mass or stricture. Delayed clearing of barium from the esophagus following swallowing, with some to-and-fro peristalsis. This may relate to diminished secondary peristalsis. [facility]
[2016-06-30] MEDS ORDERED: DIFLUCAN PO SCH (11:15)
--- NOTE | 2016-06-30 11:23 | PROGRESS NOTE ---
DATE: 06/30/2016 SUBJECTIVE: The patient is lying in bed. She states that she is feeling better today. She has no complaints. OBJECTIVE: Vital Signs: Blood pressure is 185/61, heart rate of 72, respirations are 18, temperature is 98.7 degrees oral, room air saturations are 100%. Cardiovascular: Regular rate and rhythm. S1 and S2 appreciated. Pulmonary: Breath sounds are clear. No increased work of breathing noted. Gastrointestinal: Abdomen is soft, nontender, nondistended. Bowel sounds in all 4 quadrants. Extremities: No clubbing, cyanosis, or edema. Pulses are palpable x4. Calves are nontender. Neurologic: She is alert and oriented. LABS: WBC is 10.11 with hemoglobin 7.8, hematocrit 25.1, and platelets of 308,000. Sodium is 142, potassium 2.8, BUN is 35, creatinine 1.3, with glucose ranging 106-160. Upper GI, barium swallow revealed no evidence of esophageal mass or stricture. Delayed clearing of barium from the esophagus following swallowing with some to and fro peristalsis. This may relate to diminish secondary peristalsis. ASSESSMENT AND PLAN: 1. Adynamic ileus. Abdominal x-rays are clearing. We will repeat a flat and upright in the morning. We will continue with the Dulcolax to stimulate bowel and MiraLAX p.o. and advance her diet. 2. Hypokalemia. We will continue to follow BMPs and replete as necessary. 3. Anemia, stable. We will continue to trend labs. 4. Acute kidney injury in the setting of chronic kidney disease. Creatinine is at baseline. We will continue to follow labs. 5. Chronic dysphagia. Once again, the patient has difficulty chewing and maneuvering food, especially meats and harder foods and is manipulating her mouth to swallow them. Once she can get them to the back of her throat she can swallow. She was placed on a soft diet with meats pureed. She does well with this. We will continue this diet. Her barium swallow showed maybe some reverse peristalsis. 6. Moderate protein calorie malnutrition. We will continue with her Clinimix with, as stated before, soft diet with pureed meats and will use Ensure but we will add MiraLAX to her Ensure twice a day. 7. Disposition. We will talk to child protective services social worker and pursue rehab placement. Dictated by AFSHAN Carcamo for Mc Pepper MD
--- NOTE | 2016-06-30 12:57 | DISCHARGE SUMMARY ---
ADMISSION DATE: 06/18/2016 DISCHARGE DATE: 06/30/2016 DIAGNOSES: 1. Adynamic ileus. 2. Hypokalemia. 3. Acute kidney injury, resolved. 4. Chronic kidney disease. 5. Chronic dysphagia. 6. Moderate protein-calorie malnutrition secondary to chronic dysphagia. 7. Diastolic heart failure with ejection fraction of 55% to 60% in October 2015. CONSULTATIONS: Dr. Brooks Pérez in general surgery. MICROBIOLOGY: 1. Blood cultures were no growth after 5 days x2 sets. 2. Urine catheterization on 06/22/2016 revealed yeast. 3. Stool studies, stool was negative for Salmonella, Shigella, Escherichia coli, with a few white blood cells. RADIOLOGY: 1. On 06/18/2016, chest x-ray revealed cardiomegaly. 2. On 06/18/2016, CT of the head revealed extensive chronic ischemic changes. 3. Brain MRI on 06/18/2016 revealed chronic ischemic changes. No evidence of acute ischemia. 4. On 06/22/2016, abdominal x-ray revealed apparent obstruction at distal colon, fecal impaction at the ascending colon. 5. On 06/23/2016, barium enema showed no evidence for mechanical obstruction. Colonic distention secondary to adynamic ileus. 6. On 06/25/2016, abdominal x-ray revealed distended loops representing an ileus. 7. On 06/25/2016, chest x-ray revealed poorly expanded lungs. 8. On 06/29/2016, abdominal x-ray revealed improvement in the colonic ileus, 9. On 06/30/2016 upper GI with barium swallow revealed no evidence of esophageal mass or stricture. It revealed clearing of barium from the esophagus following swallowing with some to-and-fro peristalsis which, may relate to diminished secondary peristalsis. HOSPITAL COURSE: Ms. Marcos presented to the emergency room after being found unresponsive, having a blood sugar of 31 on EMS arrival. She was given D-50 en route and her blood sugar increased. All insulin has been held throughout the hospitalization. Due to her poor p.o. intake, she had to be supplemented at times with D-50. She was started on Clinimix, and blood sugars increased to the 1-teens to 160. She was hypokalemic on admission with a potassium of 2.8. Her potassium has waxed and waned throughout the hospitalization due to her poor p.o. intake. She has had to be supplemented with IV potassium almost daily. She does have a history of acute diastolic heart failure with her last EF being 50% to 55% in October 2015. She was weighed throughout the hospitalization. We did monitor her I and O. She had no exacerbation during this hospitalization. She does have a history of hypertension. Blood pressures have been in the, it looks like, 150s to 180s over 60s and 70s. We did hold all of her antihypertensives. She will be discharged on a lower dose and can be evaluated at rehab. On admission, she had diarrhea and she had been complaining of diarrhea, nausea, vomiting, and just no appetite at home. Abdominal x-ray was performed. She was found to have an ascending colon what may be an impaction with an ileus. She has been given multiple milk and molasses enemas, as well as 2 or 3 bottles of magnesium citrate. We also gave a Fleet's and oil enemas with Dulcolax suppository scheduled. Slowly, the stool did advance, and over, I guess, between the 1st and the 2nd, she did start having some formed stool. Abdomen is soft. It is nontender. She has passed gas all along, and her x-ray from yesterday revealed an improvement in the ileus with no small bowel dilatation, but gas throughout the colon with dilatation of the cecum improved. She was evaluated for swallowing. She was found to have yeast growing in her urine, and she was started on Diflucan p.o. daily. She was evaluated by physical therapy. She has no use of her lower extremities, status post a stroke, but it was recommended that she have occupational therapy to increase her quality to perform her activities of daily living. The patient does have a history of chronic dysphagia. This started after her stroke, which was many years ago, but it has increased over the last year. After talking with the patient and the family, the patient has difficulty maneuvering food in her mouth to chew, sometimes just pocketing food until she gets tired of it being there and she will either spit it, pull it out, or the family removes the food. She is able to get soft foods as well as liquids down. She was evaluated by speech therapy, and she did fine with liquids and fine with don crackers. We did perform a barium swallow of the upper GI, which revealed no evidence of esophageal mass or stricture with delayed clearing of barium from the esophagus following some to-and-fro peristalsis. The patient was placed on a soft diet with pureed meats, and she did well with this, and this is consistent with her eating habits over the last year as well as her complaints. We will continue this diet. Also, she has difficulty swallowing pills, pocketing many, but when pills were crushed and placed in applesauce, she did fine. She does have moderate protein-calorie malnutrition, most of this secondary to her difficulty chewing and swallowing. She was placed on Ensure clear, which she tolerated well. DISCHARGE MEDICATIONS: 1. Zoloft 50 mg daily. 2. MiraLAX 17 grams p.o. b.i.d. in Ensure clear. 3. Prilosec 20 mg daily. 4. Calmoseptine ointment p.r.n. 5. Lisinopril 20 mg daily. 6. Hydroxyzine 25 mg every 8 hours p.r.n. itching. 7. Hydralazine 100 mg p.o. every 8 hours. 8. Lasix 40 mg daily. 9. Diflucan 100 mg daily for 7 days. 10. Ferrous sulfate granules 5 grains b.i.d. 11. Pepcid 40 mg b.i.d. 12. Caltrate 600 daily. 13. Aspirin 81 mg daily. 14. Lipitor 20 mg daily. 15. Dulcolax 10 mg per rectum every 12 hours to stimulate peristalsis. DISCHARGE ACTIVITY: As per physical therapy and occupational therapy. DIET: Soft diet with pureed meats. SUPPLEMENTS: Ensure clear with meals and at bedtime. MEDICATIONS HELD: Due to the patient's poor p.o. intake and episodes of hypoglycemia, all antidiabetic medications as well as insulins were held. These can be restarted if needed per the discretion of the facility director. ADDED MEDICATION: Potassium chloride 10. CODE STATUS: She is a full code. DISPOSITION: She is being discharged to rehab in stable condition. Family members are present. TIME SPENT: This is a greater than 30 minute discharge, from 11:30 to 12:10. Dictated by AFSHAN Carcamo for Mc Pepper MD
[2016-06-30 17:41] VITALS: BP 174/58
[2016-06-30] MEDS ORDERED: DULCOLAX PR SCH (21:00)
[2016-07-01] MEDS ORDERED: POTASSIUM CHLORIDE 20% LIQUID PO SCH (09:00)
== END 2016-06-30 17:45 | DRG 638 ==
LOC: P.ED 05:57 → OBSVTOIN 11:51 → P.MEDSURG 11:51
PROVIDERS: ATTEND Internal Medicine
PROC: 30233N1 Transfusion of Nonautologous Red Blood Cells into Peripheral Vein, Percutaneous Approach (ICD-10-PCS; principal; 2016-06-23)
PROC: 02HV33Z Insertion of Infusion Device into Superior Vena Cava, Percutaneous Approach (ICD-10-PCS; 2016-06-23)
DX: E11.649 Type 2 diabetes mellitus with hypoglycemia without coma (principal); I13.0 Hypertensive heart and chronic kidney disease with heart failure and stage 1 through stage 4 chronic kidney disease, or unspecified chronic kidney disease; N17.9 Acute kidney failure, unspecified; E44.0 Moderate protein-calorie malnutrition; E66.01 Morbid (severe) obesity due to excess calories; K56.0 Paralytic ileus; B37.49 Other urogenital candidiasis; I50.32 Chronic diastolic (congestive) heart failure; E86.9 Volume depletion, unspecified; E11.22 Type 2 diabetes mellitus with diabetic chronic kidney disease; N18.3 Chronic kidney disease, stage 3 (moderate); N31.9 Neuromuscular dysfunction of bladder, unspecified; D64.9 Anemia, unspecified; E87.6 Hypokalemia; R13.10 Dysphagia, unspecified; I69.991 Dysphagia following unspecified cerebrovascular disease; I25.10 Atherosclerotic heart disease of native coronary artery without angina pectoris; E78.00 Pure hypercholesterolemia, unspecified; M10.9 Gout, unspecified; K59.09 Other constipation; R06.6 Hiccough; F32.9 Major depressive disorder, single episode, unspecified; Z79.899 Other long term (current) drug therapy; Z79.82 Long term (current) use of aspirin; Z79.4 Long term (current) use of insulin; Z85.3 Personal history of malignant neoplasm of breast; Z95.5 Presence of coronary angioplasty implant and graft; Z83.3 Family history of diabetes mellitus; T38.3X5A Adverse effect of insulin and oral hypoglycemic [antidiabetic] drugs, initial encounter; Z68.37 Body mass index [BMI] 37.0-37.9, adult
CPT/HCPCS: 36415; 36569; 70450; 70551; 71010; 74020; 74022; 74246; 74270; 80048; 80053; 81001; 82270; 82550; 82948; 83036; 83735; 83880; 84100; 84484; 85025; 85027; 85610; 85730; 86850; 86900; 86901; 86920; 87040; 87045; 87046; 87088; 87324; 89055; 93005; 94640; 94760; 94761; 96365; 96366; J1650; J1815; J1940; J3480; J7030; J7050; P9016; 92610-GN; 97001-GP; 97110-GP; 97530-GP